=== PATIENT | female | born 1935 | race American Indian/Alaskan Native ===

== ENCOUNTER 2021-02-22 12:00 | Outpatient (CLI) | payer MEDICARE ==
--- NOTE | 2021-02-22 13:11 | XRay Report ---
Chest 2 views INDICATION: Dyspnea IMPRESSION: Cardiomegaly. Small pleural effusions. The lungs are grossly clear. Signer Name: Tor Boateng MD Signed: 02/22/2021 1:07 PM Workstation Name: [id number]
== END 2021-02-22 12:01 | disposition home or self-care (01) ==
LOC: XRAY 12:00
PROVIDERS: ATTEND Internal Medicine
DX: J90 Pleural effusion, not elsewhere classified (principal)
CPT/HCPCS: 71046